=== PATIENT | female | born 1995 | race African-American/Black ===

== ENCOUNTER 2017-09-11 01:10 | Inpatient (IN) | payer OTHER ==
[~2017-09-11] VITALS: Ht 165.1 cm; Wt 96.2 kg
[2017-09-11 01:40] VITALS: BP 113/58
[2017-09-11] MEDS ORDERED: OXYTOCIN 20 UNITS in LACTATED RINGERS 1,000 ML IV SCH ×4 (02:03)
[2017-09-11] MEDS ORDERED: BETAMETH ACET/BETAMETH NA PH 30 MG/5 ML VIAL IM SCH ×2 (02:03→09:00)
[2017-09-11] MEDS ORDERED: LACTATED RINGERS 1,000 ML IV SCH ×2 (02:03)
[2017-09-11] MEDS ORDERED: OXYTOCIN 10 UNITS/ML VIAL IM SCH ×2 (02:05)
[2017-09-11] MEDS ORDERED: MAGNESIUM SULFATE IV ONE (02:05)
[2017-09-11] MEDS ORDERED: LACTATED RINGERS 500 ML IV SCH (02:05)
[2017-09-11] MEDS ORDERED: METHYLERGONOVINE 0.2 MG/ML AMP IM PRN ×2 (02:05)
[2017-09-11] MEDS ORDERED: LACTATED RINGERS 500 ML IV ONE (02:05)
[2017-09-11] MEDS ORDERED: PROMETHAZINE 25 MG/ML VIAL IVP PRN ×2 (02:05)
[2017-09-11] MEDS ORDERED: MAG SULF 2000 MG/WATER PREMIX 50 ML IV SCH (02:05)
[2017-09-11] MEDS ORDERED: CARBOPROST 250 MCG/ML AMP IM PRN ×2 (02:05)
[2017-09-11] MEDS ORDERED: TERBUTALINE 1 MG/ML VIAL SUBQ SCH (02:05)
[2017-09-11] MEDS ORDERED: NACL 0.9% IV ONE (02:05)
[2017-09-11] MEDS ORDERED: AMPICILLIN 2,000 MG in NACL 0.9% MINI-BAG PLUS 100 ML IV SCH (02:05)
[2017-09-11] MEDS ORDERED: NALBUPHINE HYDROCHLORIDE 10 MG/ML VIAL IVP PRN ×2 (02:05)
[2017-09-11] MEDS ORDERED: TERBUTALINE 1 MG/ML VIAL SUBQ ONE (02:20)
[2017-09-11] MEDS ORDERED: AMPICILLIN 2,000 MG VIAL ONE (02:33)
[2017-09-11] MEDS ORDERED: FERR-252 PO (02:38)
[2017-09-11] MEDS ORDERED: PREN-546 PO (02:38)
[2017-09-11 02:48] LABS: BASOPHILS # (AUTO) 0.2 K/uL (0.00-0.22); BASOPHILS % (AUTO) 1.8 % (0.0-2.0); EOSINOPHILS # (AUTO) 0.2 K/uL (0-0.4); EOSINOPHILS % (AUTO) 1.8 % (0.0-4.0); HEMATOCRIT 36.4 % (36-48); HEMOGLOBIN 11.9 g/dL (12.0-16.0); LYMPHOCYTES # (AUTO) 1.9 K/uL (2.5-16.5); LYMPHOCYTES % (AUTO) 22.1 % (20.5-51.1); MEAN CORPUSCULAR HEMOGLOBIN 27 pg (27-31); MEAN CORPUSCULAR HGB CONC 33 g/dL (33-37); MEAN CORPUSCULAR VOLUME 82 fL (80-94); MONOCYTES # (AUTO) 0.7 K/uL (0.8-1.0); NEUTROPHILS # (AUTO) 5.6 K/uL (1.8-7.7); NEUTROPHILS % (AUTO) 66.3 % (42.2-75.2); PLATELET COUNT (AUTO) 120 K/uL (140-450); RED BLOOD CELL COUNT(AUTO) 4.45 MIL/uL (4.20-5.40); RED CELL DISTRIBUTION WIDTH 14.8 % (11.6-13.7); WHITE BLOOD COUNT (AUTO) 8.6 K/uL (4.8-10.8)
[2017-09-11 02:58] LABS: APPEARANCE,URINE CLEAR (CLEAR); BILIRUBIN,URINE NEGATIVE (NEGATIVE); BLOOD, URINE TRACE-I (NEGATIVE); COLOR,URINE YELLOW (YELLOW); LEUKOCYTE ESTERASE ,URINE NEGATIVE (NEGATIVE); NITRITE, URINE NEGATIVE (NEGATIVE); PH,URINE 6.5 (5.0-9.0); UGLUCOSE NEGATIVE (NEGATIVE)
[2017-09-11 02:58] LABS: ANION GAP 12.2 (8-16); CARBON DIOXIDE 24.9 mmol/L (21-32); CREATININE 0.6 mg/dL (0.6-1.3); POTASSIUM 3.1 mmol/L (3.5-5.1)
[2017-09-11] MEDS ORDERED: BETAMETH ACET/BETAMETH NA PH 30 MG/5 ML VIAL IM ONE (03:03)
[2017-09-11 03:04] LABS: ALBUMIN 2.3 g/dL (3.4-5.0); TOTAL BILIRUBIN 0.3 mg/dL (0.0-1.0)
[2017-09-11 03:15] LABS: RBC,URINE 0-5 (RARE) /HPF (0-5); WBC,URINE 0-5 (RARE) /HPF (0-5)
[2017-09-11] MEDS ORDERED: MAG SULF 20 GM/H2O PREMIX DRIP 500 ML IV SCH (03:55)
[2017-09-11] MEDS ORDERED: MAG SULF 20 GM/H2O PREMIX DRIP 500 ML IV ONE (03:55)
[2017-09-11] MEDS: AMPICILLIN 1,000 MG in NACL 0.9% MINI-BAG PLUS 50 ML IV SCH ×2 (06:20→10:25)
[2017-09-11] MEDS ORDERED: AMPICILLIN 1,000 MG VIAL ONE ×2 (06:27→10:31)
[2017-09-11] MEDS ORDERED: NIFEdipine 10 MG CAPLF ONE ×4 (08:01→12:45)
[2017-09-11] MEDS: NIFEdipine 10 MG CAPLF PO SCH ×2 (08:38→12:36)
--- NOTE | 2017-09-11 10:13 | NUR ---
PATIENT HAS BEEN SCREENED AND CATEGORIZED LOW NUTRITION RISK. PATIENT WILL BE SEEN WITHIN 7 DAYS OF ADMISSION. 09/17/[address]
== END 2017-09-11 13:33 | disposition short-term general hospital (02) | DRG 778 ==
LOC: MLD 01:10 → OBSVTOIN 02:03
PROVIDERS: ADMIT Obstetrics & Gynecology; ATTEND Obstetrics & Gynecology
DX: O60.03 Preterm labor without delivery, third trimester (principal); Z3A.32 32 weeks gestation of pregnancy
CPT/HCPCS: 36415; 76805; 80053; 81001; 83735; 85025; 86592; 86762; 86886; 86900; 86901; 87340; G0378; J0290; J0702; J3105; J3475; J7120; Q0092